=== PATIENT | female | born 1975 | race African-American/Black ===

== ENCOUNTER 2021-08-08 13:22 | Outpatient (CLI) | payer OTHER, SELFPAY ==
--- NOTE | ~2021-08-08 | US_ITS ---
EXAMINATION: US pelvic complete w TV DATE: 08/08/2021 14:08 INDICATION: Pelvic pain Comparison:No prior studies for comparison. TECHNIQUE: Multiple transabdominal and endovaginal sonographic images of the pelvis performed. FINDINGS: The uterus measures 7.9 x 4.1 x 4.6 cm. The endometrial complex measures 9 mm. There is a u terine fibroid on the left side of the myometrium measuring 6.4 x 4.4 x 4.6 cm. The right ovary measures 4.2 x 2.3 x 3.2 cm and the left ovary measures 2.3 x 2.5 x 1.4 cm. There ar e small follicles in each ovary. Normal doppler signal in both ovaries. There is no free fluid in the pelvis. There are no abnormal masses seen on either side. IMPRESSION: 1. Uterine fibroid measuring 6.4 cm maximum dimension. Reviewed, dictated and finalized at location B.
== END 2021-08-08 13:23 | disposition home or self-care (01) ==
PROVIDERS: Visit Provider Obstetrics & Gynecology
DX: R10.2 Pelvic and perineal pain (principal); D25.9 Leiomyoma of uterus, unspecified
CPT/HCPCS: 76830; 76856

== ENCOUNTER 2021-09-07 14:36 | Outpatient (CLI) | payer OTHER, SELFPAY ==
--- NOTE | ~2021-09-07 | MM_ITS ---
EXAMINATION: MM screening wiliam BI w angel HISTORY: Screening TECHNIQUE: Craniocaudal and mediolateral oblique 3-D tomosynthesis images were obtained and synthetic 2-D images were generated. CAD analysis was submitted and interpreted. COMPARISON: No prior mammogram is available for comparison at this institution. BREAST PARENCHYMAL COMPOSITION: The breasts are heterogeneously dense, which may obscure small masses . FINDINGS: There is no evidence of suspicious mass, calcification, or architectural distortion to sugg est malignancy in either breast. There has been no suspicious interval change. IMPRESSION: 1. No mammographic evidence of malignancy. 2. Recommend routine screening mammography in one year. BI-RADS Category 1: Negative Reviewed, dictated and finalized at location A.
== END 2021-09-07 14:37 | disposition home or self-care (01) ==
LOC: ANHIMG 14:39
PROVIDERS: Visit Provider Obstetrics & Gynecology
DX: Z12.31 Encounter for screening mammogram for malignant neoplasm of breast (principal)
CPT/HCPCS: 77063; 77067

== ENCOUNTER 2023-10-10 09:36 | Outpatient (CLI) | payer OTHER, SELFPAY | END 2023-10-10 09:37 | disposition home or self-care (01) | LOC: ANHLAB 09:38 | PROVIDERS: Visit Provider Nurse Practitioner Obstetrics & Gynecology | DX: N93.9 Abnormal uterine and vaginal bleeding, unspecified (principal); N92.6 Irregular menstruation, unspecified | CPT/HCPCS: 36415; 84146; 84443 ==

== ENCOUNTER 2023-10-23 09:59 | Outpatient (CLI) | payer OTHER, SELFPAY ==
--- NOTE | ~2023-10-23 | US_ITS ---
EXAMINATION: US pelvic complete w TV DATE: 10/23/2023 11:29 INDICATION: Irregular menstruation TECHNIQUE: Multiple transabdominal and endovaginal sonographic images of the pelvis were obtained. COMPARISON: 08/08/2021 FINDINGS: The uterus measures 8.8 x 3.7 x 7.3 cm. The endometrial complex measures 15 mm in thickness. There i s heterogeneous appearance to the myometrium most prominent along the anterior wall with echogenic so mewhat striated pattern with associated refraction artifact suggestive of diffuse adenomyosis. There is a pedunculated fibroid arising from the left side of the uterine fundus which measures 6.9 x 3.7 x 4.4 cm. The right ovary measures 4.4 x 2.2 x 3.6 cm. There is a 3.2 x 2.5 x 3.2 cm. Anechoic right ovarian cy st. There appears be a small serpiginous loculated collection of anechoic fluid at the right adnexa a nd would favor a mild right hydrosalpinx over additional adnexal cysts. The left ovary is not visuali zed. There is normal vascular flow in the ovaries. There is also a trace amount of likely physiologic free fluid along side the right ovary and in the cul-de-sac. IMPRESSION: 1. 6.5 cm pedunculated fibroid arising from the left side of the fundus. 2. Endometrial complex measures 15 mm which remains within normal limits during the secretory phase. 3. Heterogeneous in the uterine myometrial echogenicity with prominent in the anterior wall with appe arance suspicious for adenomyosis. 4. 3.2 cm right ovarian cyst with likely mild right hydrosalpinx. Reviewed, dictated and finalized at location A. IMPRESSION: 1. 6.5 cm pedunculated fibroid arising from the left side of the fundus. 2. Endometrial complex measures 15 mm which remains within normal limits during the secretory phase. 3. Heterogeneous in the uterine myometrial echogenicity with prominent in the a nterior wall with appearance suspicious for adenomyosis. 4. 3.2 cm right ovarian cyst with likely mild right hydrosalpinx.
== END 2023-10-23 10:00 | disposition home or self-care (01) ==
LOC: ANHIMG 10:01
PROVIDERS: Visit Provider Nurse Practitioner Obstetrics & Gynecology
DX: N92.6 Irregular menstruation, unspecified (principal)
CPT/HCPCS: 76830; 76856

== ENCOUNTER 2024-10-23 09:55 | Outpatient (CLI) | payer OTHER, SELFPAY ==
--- NOTE | ~2024-10-23 | US_ITS ---
EXAMINATION: US pelvic complete w TV INDICATION: History of fibroids. Adnexal fullness by examination. Comparison:Ultrasound dated 10/23/2023 TECHNIQUE: Multiple transabdominal and endovaginal sonographic images of the pelvis performed. FINDINGS: The uterus measures 8.3 x 4 x 5.3 cm. There are multiple uterine fibroids, largest being 7.4 x 4.5 x 5.3 cm on the left. The endometrial complex measures 3 mm. The right ovary measures 4.1 x 1.9 x 2.8 cm and the left ovary is not visualized. There is a 2.3 cm right ovarian cyst. There is no free fluid in the pelvis. There are no abnormal masses seen on either side. IMPRESSION: 1. Enlarged fibroid uterus, largest discrete fibroid measuring 7.4 cm. 2: Right ovarian cyst measuring 2.3 cm. Reviewed, dictated and finalized at location O.
== END 2024-10-23 09:56 | disposition home or self-care (01) ==
LOC: MICIMG 09:55
PROVIDERS: PCP Obstetrics & Gynecology; Visit Provider Obstetrics & Gynecology
DX: N94.9 Unspecified condition associated with female genital organs and menstrual cycle (principal); N83.201 Unspecified ovarian cyst, right side; D25.9 Leiomyoma of uterus, unspecified
CPT/HCPCS: 76830; 76856

== ENCOUNTER 2025-01-27 13:18 | Outpatient (CLI) | payer OTHER, SELFPAY ==
[2025-01-27 14:14] LABS: Hematocrit 41.1 % (37.0-47.0); Hemoglobin 13.8 g/dL (12.0-15.0); Immature Granulocyte Percent A 0.2 % (0-0.5); Lymphocytes Absolute Auto 1.31 K/mm3 (0.9-3.2); Mean Corpuscular HGB Conc 33.6 g/dl (32-36); Mean Corpuscular Hemoglobin 31.0 pg (26-34); Mean Corpuscular Volume 92.4 fl (80-100); Nucleated Red Blood Cells Absolute Auto 0.000 K/mm3 (0.0-0.012); Nucleated Red Blood Cells Perc 0.0 % (0.0-0.2); Platelet Count Result 281 k/mm3 (150-375); Red Blood Count 4.45 M/mm3 (4.2-5.4); White Blood Count 4.6 K/mm3 (4.5-10.0)
--- OUTSIDE RECORDS SUMMARY | 2025-01-27 15:00 | XMS_ITS | Clinical Summary ---
Author Organization [facility] Address [facility] [place] [address] Care Team Providers Care Donation Worker Name Role Phone None, Provider MD Primary Care Provider Unavaila ble Allergies No known active allergies Medications metroNIDAZOLE 250 mg tablet Take 250 mg by mouth 3 (three) times daily. Active Active Problems No known active problems Family History Medical History Relation Comments Hypertension Mother Relation Status Comments Father Mother Alive Social History Tobacco Use Types Packs/Day Years Used Date Smoking Tobacco: Never Smokeless Tobacco: Never Alcohol Use Standard Drinks/Week Comments No 0 (1 standard drink = 0.6 oz pur e alcohol) Comments No Sex and Gender Information Value Date Recorded Sex Assigned at Not on file Legal Sex Female 11:15 PM CDT Gender Identity Not on file Sexual Orientation Not on file Last Filed Vital Signs Vital Sign Reading Time Taken Comments Blood Pressure 133/97 08/04/2021 9:25 AM CDT Pulse 78 08/04/2021 9:25 AM CDT Temperature 36.1 C (97 F) 08/04/2021 9:25 AM CDT Respiratory Rate 16 08/04/2021 9:25 AM CDT Oxygen Saturation 100% 08/04/2021 9:25 AM CDT Inhaled Oxygen Concentration - - Weight 69.4 kg (153 lb) 08/04/2021 9:25 AM CDT Height 170.2 cm (5' 7) 08/04/2021 9:25 AM CDT Body Mass Index 23.96 08/04/2021 9:25 AM CDT Plan of Treatment Health Maintenance Due Date Last Done Comments Cervical Cancer Screening Pap Smear (Age 30 to 64) Every 3 Years 1977 Colorectal Cancer Screening Colonoscopy (10 Years) 1977 Annual Physical 1980 DTaP, Tdap and Td Vaccines (5 - Tdap) 12/06/1991 12/05/1991, 05/04/1986, 08/16/1981, Additional history exists Hepatitis C 1995 Hepatitis B Vaccines (1 of 3 - 19+ 3-dose series) 1996 Cervical Cancer Screening Pap with HPV Testing (Age 30 to 64) Every 5 Years 2007 Cervical Cancer Screening with HPV 2007 Mammogram Screening 2017 COVID-19 Vaccine (2024- season) 2024 08/24/2020, 08/03/2020 Influenza Adult (#1) 2024 01/03/2016 Hepatitis A Vaccines Aged Out 06/03/2015, 01/03/20 15 No longer eligible based on patient's age to complete this topic Meningococcal B Vaccine Aged Out No l onger eligible based on patient's age to complete this topic Meningococcal Vaccine Aged Out No emma cecil eligible based on patient's age to complete this topic Pneumococcal Vaccine: Pediatrics (0 to 5 Years) and At-Risk Patients (6 to 49 Years) Aged Out No longer eligible based on patient's age to complete this topic RSV Immunizations Under 20 Months Aged Out No longer eligible based on patient's age to complete this topic [facility] Care Teams Donation Worker Relationship Specialty Start Date End Date None, Provider, PCP - General 08/04/21
--- OUTSIDE RECORDS SUMMARY | 2025-01-27 15:00 | XMS_ITS | Clinical Summary ---
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 Gender Identity Not on file Sexual Orientation Not on file Plan of Treatment Health Maintenance Due Date Last Done Comments Hepatitis C Virus (HCV) Screening 1977 TdaP Immunization 1977 Hepatitis B Immunization (1 of 3 - 19+ 3-dose series) 1996 Pap Smear 1998 Cervical Cancer Screening (CCS) 2007 HPV/Cotest 2007 Cologuard 2022 Colonoscopy 2022 Colorectal Cancer Screening 2022 Immunochemical Fecal Occult Blood 2022 Influenza Immunization (#1) 2024 01/03/2016 SARS-COV-2 Immunization ( season) 2024 08/24/2020, 08/03/2020 Respiratory Syncytial Virus (RSV) Immunization (Adult) (1 - 1-dose 75+ series) 2052 DTaP/Tdap/Td Immunization Discontinued 1991, 05/04/1986, 08/16/1981, Additional history exists Human Papillomavirus (HPV) Immunization Aged Out No longer eligible based on patient's age to complete this topic Meningococcal Immunization (ACWY) Aged Out No longer eligible based on patient's age to complete this topic Pneumococcal Immunization Combined Aged Out No longer eligible based on patient's age to complete this topic Rotavirus Immunization Aged Out No lo nger eligible based on patient's age to complete this topic
== END 2025-01-27 13:19 | disposition home or self-care (01) ==
LOC: ANHSURGERY 13:23
PROVIDERS: Visit Provider Obstetrics & Gynecology
DX: D21.9 Benign neoplasm of connective and other soft tissue, unspecified (principal); Z01.818 Encounter for other preprocedural examination
CPT/HCPCS: 36415; 85025; 86850; 86900; 86901

== ENCOUNTER 2025-02-04 01:37 | Day surgery (SDC) | payer OTHER, SELFPAY ==
--- OUTSIDE RECORDS SUMMARY | 2018-09-30 09:44 | XMS_ITS | Continuity of Care Document ---
Author Organization [facility] Address [address] [place] [address] Phone Care Team Providers Care Mounter Automatic Name Role Phone Juwan Smith MD Unavailable Unavailable Allergies, Adverse Reactions, Alerts Substance Reaction Status Criticality No Known Allergies Active No Inform ation Medications Medication Instructions Dosage Effective Dates (start - stop) Status Comments metoprolol succinate ER 25 mg tablet,extended release 24 hr take 1 tablet by oral route every day 25 MG - Active kourtney extract 250 mg capsule take 1 capsule daily - Active Advance Directives Directive Yes / No Effective Date File Name Life Support Not Answered N/A N/A Intubation Not Answered N/A N/A Antibiotics Not Answered N/A N/A IV Fluid Support Not Answered N/A N/A Tube Feed Not Answered N/A N/A Other Directive N/A N/A WARNING:The information contained in this section is historical and is provided for information only and does not constitute a legal document or any assurance that the information is still accurate. Please verify the information with the guillaume of the legal document before using it for clinical purposes. Encounters Encounter Description Practice Location Reason(s) For Visit Diagnoses Date Provider Providers Copied on Encounter [facility], [address], [place], [place], [id number], [place] tel:[phone] Lilibeth No Information [facility]. [address] [place], [place], [id number] , [place]. tel:[phone] [facility], [address], [place], [place], [address], tel:[phone] Babb New patient (chief complaint) Encounter for general adult medical examination without abnormal findingsMigraine with aura and without status migrainosus, not intractableHx of TIA (transient ischemic attack) and strokeScreening for lipoid disorders [address] [facility] [address] [place], [place], [id number] , [place]. tel:[phone] Referring Provider: Juwan Smith, [address] [place], [address] . tel:[phone] Family History Family Member Type Diagnosis Age At Onset Maternal grandmother Problem (finding) breast cancer Immunizations Vaccine Date Status Comments Fluzone Quad, preservative f ree, split virus, 0.5mL dosage administered Source: Source Unspecified hepatitis A vaccine, adult dosage adminis tered Source: Source Unspecified Hep A (adult) administered Source: Source Unspecified Payers Payer name Insurance type Covered green party ID Amarivivian palmadre(s) [facility] [id number] Social History Type Description Quantity Date Captured Comments Alcohol Use Details Unknown Caffeine Use Details Unknown Tobacco Use Status No Information Smoking Status No Information Sex Female Sexual Orientation Straight or heterosexual Gender Identity Female Chief Complaint And Reason For Visit No Information Reason For Referral Reason For Referral No Information History Of Present Illness Encounter Date Complaint History Of Prese nt Illness New patient complaintsmiogra andreea-- on metoprolol, with aura, benadryl with ibuprofenhad tia-questionablysome fatigue--hematuria-- rigth before periodmid awake pattern at nightno tobacco, no etohlmp--fh-- gma had breast cancerscreeningcervical---need to see papbreast-- needs mammogramimmunizations-- recommend flunot , no kids, vacation Functional Status Date Functional Assessmen t No Information Instructions Date Instruction Additional Infor scar annual flu shothealt hy diet and exercisesee operations manager station for papfollow up in one year Related to Encounter for general adult medical examination without abnormal findings will monitor blood pressure Rela tara to Hx of TIA (transient ischemic attack) and stroke use metoprolol daily if not working, may switch meds or send to neuro Related to Migraine with aura and without status migrainosus, not intractable Medication management Assessments Type Assessment Date No Information Patient Care Teams Name Effective Dates (start - stop) Status Members No Information
--- NOTE | 2025-01-26 16:16 | SUR.PREOP ---
[facility] has started construction of its new state of the art ER which will open Spring 2026. With this, we anticipate parking may be a challenge for some our surgical patients and families. Parking spaces are limited but are available for all Surgical, obstetrics, and ER patients sharing this lot. If you arrive and find you are having a hard time finding a parking space, please note that we understand the challenges, please drive around the hospital and park near Hospital Entrance 1. When you enter this entrance, you can ask a volunteer to direct or take you back to the surgical waiting area to check in. We appreciate everyone?s understanding of these expected challenges while we build for your future. Report to the Outpatient Waiting Room, entrance under the green pavilion located off [address], at time ____06___ on date ____02/04/25___. Planned Procedure Time: ____729____.? Time changes happen often and if your time is changed the preop area will call you the afternoon before. - You and your visitor will be asked to self-screen and do not enter if you have any COVID symptoms. Please call surgeon if you need to reschedule. - A mask is optional within the hospital at this time. Patients may have clear liquids (water, carbonated beverages, clear teas, apple juice) until 3 hours prior to surgery with a maximum of 20 ounces. - NO CLEAR LIQUIDS AFTER 0430 - No food from midnight until time of surgery and no smoking, or chewing tobacco (or any form of nicotine). No chewing gum, candy or mints. - Infants may have breast milk until 4 hours before surgery, formula 6 hours prior to surgery. - Children will be allowed to drink immediately following surgery.? If applicable, please bring a bottle or sippy cup to assist with drinking. Juice, water, soda, and popsicles are readily available.? For infants on formula, please bring formula the day of surgery.? Pacifiers are allowed. Take only the following medications with a SIP of water on the morning of surgery: N/A DO NOT STOP ANY OF YOUR OTHER PRESCRIPTION MEDICATIONS PRIOR TO SURGERY EXCEPT THE FOLLOWING Hold all vitamins and supplements for 3 days per anesthesiologist. Medications to discontinue per physician N/A Date to take last dose Please no make-up, nail kazakh, hairspray, perfume, deodorant, or body powder the day of surgery.? No jewelry (including any body piercings) or valuables the day of surgery, leave them at home.? Please take a shower or bath the night before, or the morning of, surgery with an antibacterial soap.? Wear comfortable, loose fitting clothing.? Children are encouraged to wear pajamas. - Jewelry must be removed prior to entering the operating room.? Rings and piercings that are not removed may be cut off. - The hospital will not accept responsibility for valuables.? - Please leave all valuables, including medications, at home the day of surgery. If you are going home after surgery, a licensed bobtail driver must drive you home.? - NO public transportation without another adult if you receive anesthesia. - We recommend that an adult stay with you for 24 hours following discharge. - We also recommend that you do not drive, make important decision, drink alcoholic beverages, or take any drugs that were not prescribed by your health care provider for at least 24 hours after your discharge time. For Pediatric surgeries, we recommend two adults accompany the child home. Follow any additional instructions given to you from your surgeon. Telephone instructions given to ALEJANDRO WRIGHT and asked if any additional questions and then verbalized understanding. Patient advised to call surgeon office or pre surgery nurse liaison [phone] if any additional questions.
[2025-01-26 16:27] VITALS: BMI 26.2
[2025-02-04] VITALS (10 sets, daily range): BP systolic 127–146; BP diastolic 75–101; PULSE 60–82; RESP 12–24; TEMP 36.3–36.8; O2SAT 98–100; BMI 25.5
--- OUTSIDE RECORDS SUMMARY | 2025-02-04 01:40 | XMS_ITS | Clinical Summary ---
Author Organization [facility] Address [facility] [place] [address] Care Team Providers Care Balance Weigher Name Role Phone None, Provider MD Primary [...] patient's age to complete this topic [facility] Care Teams Balance Weigher Relationship Specialty Start Date End Date None, Provider, PCP - General 08/04/21
--- OUTSIDE RECORDS SUMMARY | 2025-02-04 01:40 | XMS_ITS | Clinical Summary ---
Author Organization 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
[2025-02-04] MEDS: ACETAMINOPHEN 500 MG TABLET 1000 MG PO ×3 (06:42→20:20)
[2025-02-04] MEDS: KETOROLAC 15 MG/ML VIAL (*BKC) IV PUSH (06:43)
--- NOTE | 2025-02-04 06:53 | P.PNAN_ITS ---
Anes - Initial Pre Proc Eval Procedure: Operation Date: 02/04/25 07:30 Proposed Procedures p Robotic Assisted Total Vaginal Hysterectomy with Bilateral Salpingectomy - Isac Laird MD Date/Time: 02/04/25 06:53 Surgeon: Isac Laird MD Pre Op Diagnosis: fibroids Patient Data Age: 49 Gender: F Height: 1.7 m Weight: 74 kg Last Vital Signs Temp 36.7 C 02/04/25 06:01 Pulse 81 02/04/25 06:01 Resp 16 02/04/25 06:01 BP 136/97 H 02/04/25 06:01 Pulse Ox 100 02/04/25 06:01 O2 Del Method Room Air 02/04/25 06:01 Allergies Allergy/AdvReac Type Severity Reaction Status Date / Time No Known Allergies Allergy Verified 02/04/25 06:21 Home Medications ?Medication ?Instructions ?Recorded ?Confirmed ?Type etonogestrel 68 mg subdermal 1 implant subdermal ONCE 09/16/24 01/26/25 History implant (Nexplanon) scopolamine base 1 mg over 3 days 1 patch transdermal .COMPLEX #1 ea 01/27/25 02/04/25 Rx transdermal patch Patient hx anesthesia problems: post op nausea/vomiting Family hx anesthesia problems: none Results Review: All pre-operative results and documents have been reviewed as part of the pre- operative evaluation. [facility] Past Medical History Medical History (Updated 02/04/25 @ 06:59 by Huan Polk DO) Migraine Endometriosis TIA (transient ischemic attack) Surgical History Surgical History No significant past surgical history Family History Family History Other Breast cancer Hypertension Social History Social History Smoking status: Never smoker Alcohol intake: never Substance use: never Living arrangements: with family Spiritual care concerns: No Anes - Eval Final PreProcedure Day of Procedure 02/04/25 06:53 Patient weight: overweight Heart: regular rate and rhythm Lungs: clear to auscultation Airway: Mallampati scale class II Neurological: alert and oriented Last oral intake: >/= 8 hours ASA classification: III Emergent: no Anesthetic plan: proceed Anesthesia type and monitoring: general ETT and standard monitoring Results Review: All pre-operative results and documents have been reviewed as part of the pre- operative evaluation. Informed Consent: The patient's anesthetic plan and its attendant risks and benefits were discussed with the patient/family/POA. Questions were solicited and answers provided to the satisfaction of the patient/family/POA.
--- NOTE | 2025-02-04 07:20 | WPDHPUPDATE1 ---
History and Physical Update Update Date/Time: 02/04/25 07:20 History and Physical has been reviewed, including an updated exam of the patient. There are NO changes in the patient's condition. Risks, benefits, and alternatives have been discussed and questions answered. Patient agrees to proceed with procedure.
[2025-02-04] MEDS: ceFAZolin 2 GM in SODIUM CHLORIDE 0.9% IV 50 ML 100 ML IVPB (07:29)
[2025-02-04] MEDS: LACTATED RINGERS 1,000 ML 30 ML IV CONT ×2 (07:30→09:44)
[2025-02-04] MEDS: metroNIDAZOLE 500 MG/ISO 100ML 500 MG/100 ML BAG 100 MG IVPB (07:55)
--- NOTE | 2025-02-04 09:02 | S_PTH ---
PATIENT: Luiza Ceballos LOC: [facility] U#:[id number] AGE/SX: 49/F ROOM: RE02/04/[address]: Isac Laird MD : 1975 BED: DIS: 02/05/2025 SPEC #: [id number] RECD: 02/04/25 10:42 STATUS: NEFTALI REQ #: [id number] PRAKASH: 02/04/25 09:[address]: Isac Laird DEPT: [facility] Surgical RECD BY: Afshan aGrcia ENTERED: 02/04/25 10:42 SP TYPE: Surgical OTHR DR: WELDING LEAD BURNER PHYSICIAN Tissues: A - Uterus Procedures: Hematoxylin and Eosin Stain Gross and Microscopic Level 5
[2025-02-04 09:08] LABS: BEDSIDEPREGUCG Negative (Negative)
--- NOTE | 2025-02-04 09:22 | WNDPHOTO ---
PHOTO ONLY - See Nursing Notes and/ or assessments for documentation.
--- NOTE | 2025-02-04 09:34 | P.OP_ITS ---
Procedure Note - Detailed Date of Procedure 02/04/25 Pre-op Diagnosis fibroids Post-op Diagnosis Same Procedure Performed Laparoscopic robotic assisted total vaginal hysterectomy with bilateral salpingectomy Surgeon Isac Laird MD Property Disposal Manager J Anesthesia General Indications Symptomatic fibroid uterus, menorrhagia Findings Large left broad ligament fibroid approx 10cm, normal ovaries and fallopian tubes bilaterally. Description of Procedure After informed consent was obtained she was taken to the operating room and general endotracheal anesthesia was administered. She was placed in low lithotomy position. An exam under anesthesia was performed. Uterus enlarged, no adnexal masses palpated. She was and prepped and draped in sterile fashion. Muñiz catheter placed in bladder. Attention was turned to the vagina speculum was inserted. Single-tooth tenaculum placed on anterior lip of the cervix the uterus sounded to 9 cm. The cervix was dilated to a 8 Price dilator. A size 8 uterine manipulator was inserted and secured. A size 2.5 colp cup was secured in the vagina. Then attention was turned to the abdomen with new sterile gloves. .5% marcaine injected subcutaneously. An incision was made horizontal 2 cm above the umbilicus. A Veress needle was inserted. Confirmation into the abdomen obtained with normal peritoneal pressures. A Pneumoperitoneum of 15 mm per me rcury was obtained. No abdominal or pelvic adhesions noted. A small incision was made approximately 6 cm lateral to the port on the left side of the port. A size 8mm robotic port was inserted under laparoscopic visualization into the abdomen on the left side And the same was done on the right side with a robotic port and the assistant attorney general port. patient was placed in Trendelenburg position. The quynh otic arms were attached. Attention was turned to the surgery consult. The right round ligament was ligated and the anterior leaf of the broad ligament was dissected anteriorly. The right side of the bladder was dissected from the lower uterine segment and upper cervix. The right fallopian tube was ligated and the right ovarian ligament was ligated. the ascending vessels were ligated. The uterine vessels were ligated. Attention was turned to the left round ligament which was ligated and the anterior leaf of the broad ligament was dissected anteriorly. The rest of the vesicouterine peritoneum was dissected off of the uterus. Once the bladder was dissected below the colp cup then The fallopian tube was ligated from the broad ligament. A large left broad ligament fibroids approximated 10 cm. was dissected from the broad ligament.The ovarian ligament was ligated. The ascending uterine vessels were ligated. The cardinal ligaments were ligated. This was done on both sides. An incision was made anterior colpotomy incision was made and this was carried around until the cervix was from vaginal tissue. the fibroid was ligated from its attachment to the left side of the uterus. The uterus and cervix were removed through the vagina and the large fibroid was removed through the vagina. The vaginal cuff was closed in a running fashion with 0 V lock suture x 2. Hemo stasis was noted. The pelvis was irrigated. Hemostasis noted. The patient was taken out of Trendelenburg position. The pneumoperitoneum was released and the ports were removed. The skin incisions were closed with 4 O Vicryl and dermabond. The patient was extubated in operating room. The sponge count was correct x2. Patient tolerated procedure well and was taken to recovery in stable condition. Estimated Blood Loss 20 Drains No Packing No Pathology Yes (uterus and cervix and right and left fallopian tubes) Complications No immediate complications Condition Stable Disposition PACU [facility] Billing Surgery - Charge Forward: Surgery Billing
[2025-02-04] MEDS: fentaNYL CITRATE INJ (*CRX) 100 MCG/2 ML VIAL 25 MCG IV PUSH ×6 (09:59→10:41)
--- NOTE | 2025-02-04 10:50 | PC.NURSE ---
This patient, Luiza Ceballos, was received from [PACU per bed to room 289] on 02/04/25 at 1105. Patient/family oriented to unit policies and routines
[2025-02-04] MEDS: KETOROLAC 30 MG/ML VIAL (*BKC) IV PUSH ×2 (14:09→20:20)
[2025-02-04] MEDS: SIMETHICONE 80 MG TAB.CHEW PO ×2 (14:09→20:20)
[2025-02-04] MEDS: DOCUSATE SODIUM 100 MG CAPSULE PO (20:20)
[2025-02-05 00:20] VITALS: BP 125/85; PULSE 67; RESP 15; TEMP 36.8; O2SAT 99
[2025-02-05] MEDS: ACETAMINOPHEN 500 MG TABLET 1000 MG PO ×2 (01:47→08:14)
[2025-02-05] MEDS: KETOROLAC 30 MG/ML VIAL (*BKC) IV PUSH (01:47)
[2025-02-05 04:45] VITALS: BP 122/79; PULSE 68; RESP 14; TEMP 36.9; O2SAT 100
[2025-02-05] MEDS: oxyCODONE HCL (*CRX) 5 MG TAB IR 10 MG PO ×2 (05:42→11:21)
--- NOTE | 2025-02-05 05:42 | PC.NURSE ---
patient experiencing severe abdominal soreness while ambulating to the bathroom. patient asked for stronger pain medication, to which I brought Roxicodone. I offered the patient 5mg or 10mg, and as she has never taken it before, patient opted to take the 5mg Roxicodone at 0515. I told her if it is not effective, she can have another 5mg totalling 10mg. Within 20 minutes, patient called out asking for the other 5mg of Roxicodone. Patient took the other 5mg of Roxicodone at 0542. To avoid any confusion on the MAR, I removed my charting of the 5mg at 0515, and replaced it in the MAR with a total of 10mg at 0542.
[2025-02-05 07:10] VITALS: BP 138/94; PULSE 67; RESP 16; TEMP 36.9; O2SAT 99
[2025-02-05] MEDS: SIMETHICONE 80 MG TAB.CHEW PO (08:14)
[2025-02-05] MEDS: DOCUSATE SODIUM 100 MG CAPSULE PO (08:14)
[2025-02-05] MEDS: IBUPROFEN 600 MG TABLET PO (08:14)
--- NOTE | 2025-02-05 10:55 | PM.DS ---
DS: Admitting Diagnosis Discharge Date 02/05/25 Admitting Diagnosis Symptomatic fibroid uterus DS: Discharge Diagnosis Discharge Diagnosis (1) Post-op pain: Code(s): G89.18 - Other acute postprocedural pain Status: Acute (2) Fibroid uterus: Code(s): D25.9 - Leiomyoma of uterus, unspecified Status: Acute (3) Hysterectomy planned: Status: Acute DS: Summary Hospital Course Reason for hospitalization: Hysterectomy Hospital Course: She had uncomplicated hysterectomy. She did well post op with adequate pain control and tolerating regular diet. She was discharged to home on post op day one. Discharge precautions reviewed. Status at Discharge Functional status at discharge: independent ambulation Time Spent with Patient Time attestation: Total time spent providing and/or coordinating discharge services: Exam Const: General: comfortable and no acute distress Orientation/consciousness: oriented to person, oriented to place and oriented to time Resp: Auscultation: clear to auscultation bilaterally Cardio: Rate: regular rate Rhythm: regular rhythm GI: GI Palp: Yes Soft to palpation and No Tenderness to palpation present (GI) Auscultation: normal bowel sounds Other: Incisions healing no signs of infection Neuro: General: oriented to person, oriented to place and oriented to time Extrem: General: no calf tenderness DS: Data Data Completed and Pending Completed studies during hospitalization: Pending at discharge 02/04/25 09:02 Surgical [PTH] Routine Discharge Plan Discharge Patient Disposition: Home Discharge Instructions: Remove the Scopolamine patch that was placed behind your ear in 72 hours or less. Wash your hands after touching. Patient Instructions: Laparoscopic Hysterectomy (DC) Patient Language: Wallisian Stand Alone Forms: General Discharge Instructions Discharge Medications: New ibuprofen 600 mg Tablet 600 mg PO Q6HR Qty: 30 0RF oxycodone 5 mg Tablet 5 mg PO Q4H PRN (Reason: Pain Rated 4-6) Qty: 25 0RF acetaminophen 500 mg Tablet 500 mg PO Q6HR PRN (Reason: pain (scale score 4-6)) Qty: 30 0RF No Action scopolamine base 1 mg over 3 days patch 3 day 1 patch transdermal .COMPLEX Qty: 1 0RF Rx Instructions: 1 patch transdermally the night before surgery.; Nexplanon 68 mg implant 1 implant subdermal ONCE Rx Instructions: as a single dose
== END 2025-02-05 11:25 | disposition home or self-care (01) ==
LOC: ANHSURGERY 10:26 → ANHOB2 10:54
PROVIDERS: Visit Provider Obstetrics & Gynecology
PROC: (CPT 58552; principal; 2025-02-04 07:30)
DX: N83.8 Other noninflammatory disorders of ovary, fallopian tube and broad ligament (principal); D25.9 Leiomyoma of uterus, unspecified; G89.18 Other acute postprocedural pain; N80.9 Endometriosis, unspecified; Z86.73 Personal history of transient ischemic attack (TIA), and cerebral infarction without residual deficits; Z80.3 Family history of malignant neoplasm of breast
CPT/HCPCS: 58552; S2900; 88307; 99199; J0690; A9270; J1100; J1171; J1200; J1836; J1885; J2003; J2250; J2405; J2704; J3010; J7030; J7120

== ENCOUNTER 2025-03-04 08:41 | Outpatient (CLI) | payer OTHER, SELFPAY ==
--- NOTE | ~2025-03-04 | MM_ITS ---
EXAMINATION: screening [facility] BI w angel HISTORY: Z12.31 - Encounter for screening mammogram for malignant ... TECHNIQUE: Craniocaudal and mediolateral oblique 3-D tomosynthesis images were obtained and synthetic 2-D images were generated. CAD analysis was submitted and interpreted. COMPARISON: None BREAST PARENCHYMAL COMPOSITION: The breast tissue is heterogeneously dense, which may obscure small masses. FINDINGS: There are multiple, bilateral, circumscribed nodules/masses, a benign finding. No suspicious masses are seen. There are no suspicious calcifications. No unexplained architectural distortion is seen. There are no skin or nipple abnormalities identified. There is no adenopathy seen on the images submitted. IMPRESSION: No mammographic evidence to suggest malignancy is seen. The patient may return to screening mammography as per ACR guidelines. BI-RADS 2 - Benign. Reviewed, dictated and finalized at location C. ROASTER HELPER
--- OUTSIDE RECORDS SUMMARY | 2025-03-04 08:46 | XMS_ITS | Clinical Summary ---
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
--- OUTSIDE RECORDS SUMMARY | 2025-03-04 08:46 | XMS_ITS | Clinical Summary ---
Author Organization [facility] Address [id number] [place] [address] Care Team Providers Care Electric Meter Installer Name Role Phone None, Provider MD Primary [...] patient's age to complete this topic Insurance [facility] Care Teams Electric Meter Installer Relationship Specialty Start Date End Date None, Provider, PCP - General 08/04/21
== END 2025-03-04 08:42 | disposition home or self-care (01) ==
PROVIDERS: PCP Obstetrics & Gynecology; Visit Provider Obstetrics & Gynecology
DX: Z12.31 Encounter for screening mammogram for malignant neoplasm of breast (principal)
CPT/HCPCS: 77063; 77067